=== PATIENT | female | born 1980 ===

== ENCOUNTER 2020-02-04 05:23 | Inpatient (IN) | payer OTHER ==
[~2020-02-04] VITALS: Ht 157.5 cm; Wt 3.6 kg
[2020-02-04] MEDS ORDERED: PROVIDA OB CAP1 EACH PO (08:10)
[2020-02-04] MEDS ORDERED: MIRALAX17 GM PO (08:14)
[2020-02-04] MEDS ORDERED: INTEGRA PLUS C1 EACH PO (08:14)
== END 2020-02-06 14:27 | disposition home or self-care (01) | DRG 785 ==
LOC: LDR 05:23 → O/R 08:08 → OB/GYN 10:25 → SURG-SUITE 11:18
PROVIDERS: ADMIT Specialist; ATTEND Specialist
PROC: 0UL70ZZ Occlusion of Bilateral Fallopian Tubes, Open Approach (ICD-10-PCS; 2020-02-04)
PROC: 4A1HXCZ Monitoring of Products of Conception, Cardiac Rate, External Approach (ICD-10-PCS; 2020-02-04)
PROC: 10D00Z1 Extraction of Products of Conception, Low, Open Approach (ICD-10-PCS; principal; 2020-02-04 07:00)
DX: O82 Encounter for cesarean delivery without indication (principal); Z3A.38 38 weeks gestation of pregnancy; Z37.0 Single live birth; Z30.2 Encounter for sterilization